=== PATIENT | female | born 1975 | race Caucasian/White ===

== ENCOUNTER 2022-12-31 17:46 | Outpatient (CLI) | payer MEDICARE | END 2022-12-31 23:59 | disposition critical access hospital (66) | LOC: EMS 17:46 | DX: R45.89 Other symptoms and signs involving emotional state (principal) | CPT/HCPCS: A0425; A0429 ==

== ENCOUNTER 2022-12-31 18:08 | Inpatient (IN) | payer MEDICAID, MEDICARE ==
[2022-12-31 18:41] LABS: BASOPHILS # (AUTO) 0.1 10^3/uL (0.0-0.1); BASOPHILS % (AUTO) 1.6 %; EOSINOPHILS # (AUTO) 0.1 10^3/uL (0.0-0.7); EOSINOPHILS % (AUTO) 0.9 %; HCT - HEMATOCRIT 49.7 % (37.0-47.0); HGB - HEMOGLOBIN 16.6 g/dL (12.0-16.0); LYMPHOCYTES # (AUTO) 3.2 10^3/uL (1.5-3.5); LYMPHOCYTES % (AUTO) 42.6 %; MEAN CORPUSCULAR HEMOGLOBIN 31.9 pg (27.0-31.0); MEAN CORPUSCULAR HGB CONC 33.4 g/dL (32.0-36.0); MEAN CORPUSCULAR VOLUME 95.6 fL (81.0-99.0); MEAN PLATELET VOLUME 8.9 fL (7.9-10.8); MONOCYTES # (AUTO) 0.6 10^3/uL (0.0-1.0); MONOCYTES % (AUTO) 8.2 %; NEUTROPHILS # (AUTO) 3.5 10^3/uL (1.5-6.6); NEUTROPHILS % (AUTO) 46.2 %; PLT - PLATELET COUNT 137 10^3/uL (130-450); RED CELL DISTRIBUTION WIDTH 14.7 % (12.0-15.0); WHITE BLOOD COUNT 7.5 x10^3/uL (4.8-10.8)
[2022-12-31 18:51] LABS: MUDS CUTOFF CONCENTRATIONS CUTOFF CONC BELOW:
[2022-12-31 18:56] LABS: GLUCOSE, URINE (UA) 100 mg/dL (NEGATIVE); KETONES,URINE (UA) 15 mg/dL (NEGATIVE); LEUKOCYTE ESTERASE, URINE NEGATIVE (NEGATIVE); NITRITE,URINE NEGATIVE (NEGATIVE); OCCULT BLOOD,URINE MODERATE (NEGATIVE); PH,URINE 6.5 PH (5.0-7.5); PROTEIN,URINE >=300 mg/dL (NEGATIVE); UROBILINOGEN,URINE 2 E.U./dL (NORMAL)
[2022-12-31 19:00] LABS: BILIRUBIN,URINE NEGATIVE (NEGATIVE); CLARITY,URINE HAZY (CLEAR); ICTOTEST,URINE NEGATIVE
[2022-12-31 19:05] LABS: ALBUMIN 4.4 g/dL (3.2-5.5); CK- CREATINE KINASE 150 IU/L (30-223); ETOH - ETHANOL 316.3 mg/dL; LIPASE 44 U/L (11-82); MAGNESIUM 1.6 mg/dL (1.7-2.3)
[2022-12-31 19:07] LABS: BACTERIA,URINE Few /HPF (None Seen); MUCUS,URINE Few Strands; SQUAMOUS EPITHELIAL CELL,UR MANY Squamous (<= Few)
[2022-12-31 19:09] LABS: AMPHETAMINE SCREEN,URINE NEGATIVE (NEGATIVE); BARBITURATE SCREEN,UR NEGATIVE (NEGATIVE); BENZODIAZEPINES SCREEN, URINE NEGATIVE (NEGATIVE); COCAINE SCREEN URINE NEGATIVE (NEGATIVE); METHADONE SCREEN, URINE NEGATIVE (NEGATIVE); METHAMPHETAMINES SCREEN, URINE NEGATIVE (NEGATIVE); OPIATE SCREEN, URINE NEGATIVE (NEGATIVE); OXYCODONE SCREEN, URINE NEGATIVE (NEGATIVE); PROPOXYPHENE SCREEN, URINE NEGATIVE (NEGATIVE); THC CANNABINOID SCREEN, URINE POSITIVE (NEGATIVE); TRICYCLIC ANTIDEPRESSANT,URINE NEGATIVE (NEGATIVE)
[2022-12-31 19:13] LABS: ACETAMINOPHEN < 0 ug/mL (10-30); ALBUMIN/GLOBULIN RATIO 1.2 (1.0-2.2); ALKALINE PHOSPHATASE 119 IU/L (42-121); ALT ALANINE AMINOTRANSFERASE 43 IU/L (10-60); AST ASPARTATE AMINOTRANSFERASE 97 IU/L (10-42); BILIRUBIN,TOTAL 1.4 mg/dL (0.2-1.0); BUN - BLOOD UREA NITROGEN 10 mg/dL (6-20); CARBON DIOXIDE - CO2 19 mmol/L (21-32); CHLORIDE 101 mmol/L (101-111); CREATININE 0.7 mg/dL (0.6-1.3); GFR - MDRD 89 (>89); GLUCOSE 175 mg/dL (74-104); POTASSIUM 3.4 mmol/L (3.5-4.5); SALICYLATE < 1.5 mg/dL; SODIUM 140 mmol/L (135-145); THYROID STIMULATING HORMONE 1.81 uIU/mL (0.34-5.60)
[2022-12-31] MEDS ORDERED: ONDANSETRON ODT 4 MG TABLET TL STA ×2 (19:33→21:52)
[2022-12-31] MEDS ORDERED: POTASSIUM CHLORIDE 20 MEQ/15 ML UDC PO STA (20:28)
[2022-12-31] MEDS ORDERED: diphenhydrAMINE 25 MG CAPSULE PO STA (20:44)
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
[2023-01-01] MEDS ORDERED: METOCLOPRAMIDE 10 MG TABLET PO STA (00:14)
[2023-01-01] MEDS ORDERED: LORazepam 0.5 MG TABLET PO STA (00:14)
[2023-01-01] MEDS ORDERED: IPRATROPIUM/ALBUTEROL 3 ML NEB INH STA (04:19)
[2023-01-01] MEDS ORDERED: LORazepam 2 MG/ML VIAL IVP STA (04:20)
[2023-01-01] MEDS ORDERED: SODIUM CHLORIDE 0.9% 1,000 ML IV STA (04:20)
[2023-01-01] MEDS ORDERED: PANTOPRAZOLE 40 MG VIAL IVP STA (05:11)
[2023-01-01] MEDS ORDERED: SODIUM CHLORIDE FLUSH 0.9% 10 ML SYRINGE IVP PRN (05:19)
[2023-01-01] MEDS ORDERED: NICOTINE 21 MG PATCH TOP STA (05:22)
--- NOTE | 2023-01-01 05:48 | HISTORY & PHYSICAL EXAMINATION ---
History and Physical - History and Physical Chief Complaint - Desire to cease alcohol consumption History of Present Illness (HPI) - Patient is a 47-year-old female with a history of alcoholic cirrhosis, sober for 2 years with a recent relapse 2 weeks ago. - Presented to the emergency room due to alcohol intoxication and a desire to quit alcohol. - Last consumed alcohol yesterday morning, specifically vodka. - According to the patient, she consumes a fifth of vodka daily. - Patient exhibited anxiety and was diaphoretic upon arrival. - Reported multiple vomiting episodes. - Blood alcohol level was initially around 300; though intoxicated, she gradually became more alert, oriented, and displayed increased anxiety. She also presented with tachycardia. - Currently, the patient is somnolent but responsive and answers questions. - She reports no recent fever, chills, diarrhea, or dysuria but has a chronic cough. - Denies headaches but admits to feeling dizzy. - Previous medical procedures include a paracentesis. - She is a smoker of both cigarettes and marijuana. Past Medical History (PMH) - Diabetes mellitus - Alcoholic cirrhosis Past Surgical History - Family History - Diabetes Social History - Daily consumption of a fifth of vodka - Smokes a pack of cigarettes daily and uses marijuana occasionally Review of Systems (ROS) - 14-system review was conducted, all negative except for what's noted in the HPI. Physical Examination - Vitals: Reviewed - Head: Atraumatic, Normocephalic - Eyes: Pupils reactive to light - Neck: No JVD - Cardiovascular System (CVS): Tachycardia - Respiratory System (RS): Tachypnea with mild wheezing - Abdomen: Distended with epigastric tenderness - Extremities: No clubbing, cyanosis, or edema - Skin: Clear, no ulcers or rashes - Musculoskeletal: No calf tenderness - Central Nervous System (PAPER SEALER): Alert and oriented x3; CN 2-12 intact; full movement of all limbs. Decreased sensations in both lower extremities. Laboratory Results - Reviewed Assessment 1. Alcohol withdrawal 2. Liver cirrhosis 3. Hypokalemia 4. Hypomagnesemia 5. Nicotine dependence due to cigarette use 6. Type 2 diabetes mellitus 7. Suspected peripheral diabetic neuropathy Plan - Admit to telemetry - Initiate alcohol withdrawal protocol: IV Ativan, monitor with CIWA score - Administer banana bag - One-time dose of IV Protonix - Replenish magnesium and potassium - Zofran as needed - Apply clonidine patch - Start gabapentin for alcohol withdrawal: 300mg TID on day 1, 300mg BID on subsequent days, then 300mg daily as tapering dose - Administer sliding-scale insulin with Accu-Cheks - Recommend diabetic cardiac diet - Order chest X-ray - Consider abdominal ultrasound if repeat exam shows significant ascites - Initiate nicotine patch therapy Code Status - Full code Additional Information - Examination duration: 70 minutes - Telemedicine evaluation using a bedside audiovisual cart. - Location: Provider in [place], [place]; patient at [facility]. - Verbal consent obtained. - Bedside nurse assisted in the examination.
[2023-01-01] MEDS ORDERED: MAGNESIUM SULFATE 2 GRAM 2 GM/50 ML BAG IV ONE (06:00)
[2023-01-01] MEDS ORDERED: cloNIDine 0.1 MG PATCH TOP SCH (06:00)
[2023-01-01] MEDS: GABAPENTIN 300 MG CAPSULE PO SCH ×3 (06:38→21:55)
--- NOTE | 2023-01-01 08:20 | XRAY Report ---
PROCEDURE: Chest 1 View X-Ray INDICATIONS: hypoxia TECHNIQUE: One view of the chest was acquired. COMPARISON: None. FINDINGS: Surgical changes and devices: None. Lungs and pleura: Patient is rotated No pleural effusions or pneumothorax. Lungs are clear. Mediastinum: Mediastinal contours appear normal. Heart size is normal. Bones and chest wall: No suspicious bony lesions. Overlying soft tissues appear unremarkable. IMPRESSION: Patient is rotated. No gross acute cardiopulmonary process. Findings are concordant with preliminary interpretation provided by [facility]. Reviewed by: Ramin Contreras MD on 01/01/2023 8:19 AM PDT Approved by: Ramin Contreras MD on 01/01/2023 8:19 AM PDT Station ID: [id number]
[2023-01-01 08:59] LABS: ESTIMATED AVERAGE GLUCOSE 192 mg/dL (70-100); HEMOGLOBIN A1c% 8.3 % (4.27-6.07)
[2023-01-01] MEDS ORDERED: MULTIVITAMIN 10 ML, THIAMINE INJ 100 MG, POTASSIUM CHLORIDE INJ 20 MEQ, FOLIC ACID INJ ... IV SCH ×5 (09:00)
--- NOTE | 2023-01-01 09:09 | XRAY Report ---
PROCEDURE: Chest 2 View X-Ray INDICATIONS: baseline TECHNIQUE: 2 views of the chest were acquired. COMPARISON: None. FINDINGS: Surgical changes and devices: None. Lungs and pleura: No pleural effusions or pneumothorax. Lungs are clear. Mediastinum: There is less patient rotation. There is persistent prominence of the right paratrachea l mediastinal contour. No significant central venous congestion. Normal size heart. Bones and chest wall: No suspicious bony lesions. Overlying soft tissues appear unremarkable. IMPRESSION: 1. Clear lungs. 2. Prominent right mediastinal contour may indicate ascending aortic ectasia, other vascular prominen ce, or right perihilar soft tissue mass. Chest CT with contrast recommended. Reviewed by: Karina Simmons MD on 01/01/2023 9:07 AM PDT Approved by: Karina Simmons MD on 01/01/2023 9:07 AM PDT Station ID: [id number]
--- NOTE | 2023-01-01 09:50 | PHARMACY PROGRESS NOTE ---
- Best Possible Medication History Admit Date and Time: 01/01/23 0519 Processed by: Nursing Medication History completed: Yes Med list updated by ER nurse As the person ultimately responsible for medication therapy, providers are able to order a medication from an existing home medication list in [facility] via the "Reconcile Routine" prior to Confirmation of that medication by pharmacy retail support specialist. Such practice is discouraged except when the physician, in their clinical judgment, deems that a medical need exists for a medication without regard to previous use.
--- NOTE | 2023-01-01 10:05 | PROVIDER PROGRESS NOTE ---
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 * Admitted for alcohol withdrawal and started on CIWA protocol. Labs, H&P, and ED notes reviewed. Agree with assessment and plan. * This morning patient has been sleeping most of the morning, with normal vital signs and no acute issues identified. * Discussed with nursing, no concerns currently. * We will continue to monitor and further substance abuse counseling/resources to be discussed when patient is more alert.
[2023-01-01] MEDS: INSULIN LISPRO 300 UNIT/3 ML PEN SUBQ SCH ×4 (10:16→20:38)
[2023-01-01] MEDS: PRENATAL VITAMIN TABLET PO SCH (10:16)
[2023-01-01] MEDS: THIAMINE 100 MG TABLET PO SCH (10:16)
[2023-01-01] MEDS: NYSTATIN POWDER 15 GM TOP SCH ×2 (10:17→20:38)
[2023-01-01] MEDS: SODIUM CHLORIDE FLUSH 0.9% 10 ML SYRINGE IVP SCH ×3 (10:17→23:41)
[2023-01-01] MEDS: polyethylene glycoL 3350 17 GM PACKET PO SCH (10:17)
[2023-01-01] MEDS: LORazepam 2 MG/ML VIAL IVP PRN ×6 (10:18→23:41)
[2023-01-01] MEDS: ONDANSETRON 4 MG/2 ML VIAL IVP PRN ×2 (10:18→15:29)
[2023-01-02] MEDS: ONDANSETRON 4 MG/2 ML VIAL IVP PRN ×4 (04:52→15:30)
[2023-01-02] MEDS: LORazepam 2 MG/ML VIAL IVP PRN ×7 (04:52→16:26)
[2023-01-02 05:43] LABS: ALBUMIN 3.9 g/dL (3.2-5.5); ALBUMIN/GLOBULIN RATIO 1.3 (1.0-2.2); BILIRUBIN,TOTAL 2.8 mg/dL (0.2-1.0); CALCIUM 8.9 mg/dL (8.5-10.3); CREATININE 0.6 mg/dL (0.6-1.3); POTASSIUM 3.7 mmol/L (3.5-4.5)
[2023-01-02] MEDS: GABAPENTIN 300 MG CAPSULE PO SCH (06:30)
[2023-01-02] MEDS ORDERED: PANTOPRAZOLE 40 MG TABLET PO SCH (07:00)
[2023-01-02] MEDS ORDERED: BISACODYL 10 MG SUPP PR ONE (07:24)
[2023-01-02] MEDS: INSULIN LISPRO 300 UNIT/3 ML PEN SUBQ SCH ×3 (08:11→17:09)
[2023-01-02] MEDS: PRENATAL VITAMIN TABLET PO SCH (08:12)
[2023-01-02] MEDS: THIAMINE 100 MG TABLET PO SCH (08:12)
[2023-01-02] MEDS: polyethylene glycoL 3350 17 GM PACKET PO SCH (08:13)
[2023-01-02] MEDS: SODIUM CHLORIDE FLUSH 0.9% 10 ML SYRINGE IVP SCH ×2 (08:13→17:10)
[2023-01-02] MEDS: NYSTATIN POWDER 15 GM TOP SCH (08:13)
[2023-01-02] MEDS ORDERED: SENNA 8.6 MG TABLET PO SCH (09:00)
[2023-01-02] MEDS ORDERED: DOCUSATE SODIUM 250 MG CAPSULE PO SCH (09:00)
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
[2023-01-02] MEDS ORDERED: chlordiazePOXIDE 5 MG CAPSULE PO SCH (14:00)
[2023-01-02 16:16] VITALS: BP 118/70; O2SAT 93
[2023-01-02] MEDS ORDERED: GABAPENTIN 300 MG CAPSULE PO SCH (18:00)
--- NOTE | 2023-01-02 18:14 | Discharge Plan ---
Discharge Plan Problem Reviewed?: Yes Disposition: Home, Self Care Condition: Fair Prescriptions: No122/Iron/Folic Acid [ Multi Tablet] 1 each PO DAILY #30 tablet Thiamine [Vitamin B-1] 100 mg PO DAILY #30 tab Diet: Regular Activity Restrictions: Activity as Tolerated Shower Restrictions: No Driving Restrictions: Yes (no driving) Health Concerns: You presented intoxicated to the emergency room. You are intoxicated with alcohol. You wanted to stop cold turkey. You started going through withdrawal and came to the emergency room. Overnight you have been given medicines to help you with your withdrawal. Today you just want to go home. Plan of Treatment: Please take a vitamin and thiamine. The supplements the vitamin loss that you have with alcohol abuse. Please see a primary care provider in follow-up. Please see if you can put yourself into a rehab program again While you were here your chest x-ray seemed mildly abnormal. There seems to be a fullness the middle of your chest going slightly to the right. It could mean nothing. Or it could mean that you have an aneurysm. Please establish yourself with a primary care provider and get follow-up for an abnormal chest x-ray. Care Goals: You would like to be clean and sober again. Assessment: Patient is still agitated, but no longer hallucinating. No tremors, no diaphoresis. Just finished eating dinner and had no nausea or vomiting No Smoking: If you smoke, Please STOP! Call for help.
--- NOTE | 2023-01-02 18:15 | DISCHARGE SUMMARY ---
"Discharge Summary Admit Date: 01/01/23 Discharge Date: 01/02/23 Discharging Provider: Rosa M Mcghee MD Condition at Discharge: Fair Discharge Disposition: 01 Home, Self Care - DIAGNOSES Discharge Diagnoses with Status of Each Condition: 1. Alcohol dependence with withdrawal 2. Type 2 diabetes mellitus, controlled without long-term use of insulin 3. Peripheral neuropathy 4. Hypokalemia 5. Hypomagnesemia - HPI History of Present Illness: - Patient is a 47-year-old female with a history of alcoholic cirrhosis, sober for 2 years with a recent relapse 2 weeks ago. - Presented to the emergency room due to alcohol intoxication and a desire to quit alcohol. - Last consumed alcohol yesterday morning, specifically vodka. - According to the patient, she consumes a fifth of vodka daily. - Patient exhibited anxiety and was diaphoretic upon arrival. - Reported multiple vomiting episodes. - Blood alcohol level was initially around 300; though intoxicated, she gr adually became more alert, oriented, and displayed increased anxiety. She also presented with tachycardia. - Currently, the patient is somnolent but responsive and answers questions. - She reports no recent fever, chills, diarrhea, or dysuria but has a chronic cough. - Denies headaches but admits to feeling dizzy. - Previous medical procedures include a paracentesis. - She is a smoker of both cigarettes and marijuana. Past Medical History (PMH) - Diabetes mellitus - Alcoholic cirrhosis Past Surgical History - - CONSULTS | PROCEDURES Procedures: 2 chest x-rays were done. She has a prominent right mediastinal contour indicating possible a sending aortic ectasia. Or right perihilar soft tissue. Chest CT was recommended and not done. Patient wanted to go home. - HOSPITAL COURSE Hospital Course: Patient was started on CIWA protocol. She was receiving quite a bit of Ativan and received 18 mg before the afternoon of January 02. And then in the afternoon received another 6 mg. She was also started on Librium 5 mg. She did have mild hallucinations in the morning. But by the afternoon she was eating. Ambulating. No longer tremulous. No longer diaphoretic. And she wanted to go home. She did not want to stay any longer. As such she was discharged in stable condition. Instructed to take vitamins in the form of thiamine and . Instructed to get a follow-up of her chest x-ray. She is slightly tachycardic at 114, but again the patient wants to leave. Blood pressure is 118/70. Respirations 18. 93% on room air. When she was examined today she had clear lungs. Tachycardia. But no tremors or ataxia. This document was made in part using voice recognition software. While efforts are made to proofread this document, sound alike and grammatical errors may occu r. - ALLERGIES Allergies/Adverse Reactions: Allergies Allergy/AdvReac Type Severity Reaction Status Date / Time abx Allergy Hives Uncoded 01/01/23 05:35 - MEDICATIONS Home Medications: Ambulatory Orders Medication Instructions Recorded Confirmed Omeprazole Magnesium 20 mg PO DAILY 01/01/23 01/01/23 No122/Iron/Folic Acid 1 each PO DAILY #30 tablet 01/02/23 [ Multi Tablet] Thiamine [Vitamin B-1] 100 mg PO DAILY #30 tab 01/02/23 - LABS Result Diagrams: 12/31/22 18:29 01/02/23 04:46"
[2023-01-03] MEDS ORDERED: BISACODYL 10 MG SUPP PR ONE (07:24)
== END 2023-01-02 18:25 | disposition home or self-care (01) | DRG 897 ==
LOC: ED 18:08 → MS2 01-01 05:19
PROVIDERS: ADMIT Internal Medicine; ATTEND Specialist
DX: F10.129 Alcohol abuse with intoxication, unspecified (principal); F32.A Depression, unspecified; F10.231 Alcohol dependence with withdrawal delirium; R00.0 Tachycardia, unspecified; R11.0 Nausea; R09.02 Hypoxemia; Z20.822 Contact with and (suspected) exposure to COVID-19; Z63.4 Disappearance and death of family member; E11.42 Type 2 diabetes mellitus with diabetic polyneuropathy; E87.6 Hypokalemia; E83.42 Hypomagnesemia; K70.30 Alcoholic cirrhosis of liver without ascites; F41.9 Anxiety disorder, unspecified; Y90.8 Blood alcohol level of 240 mg/100 ml or more; F17.210 Nicotine dependence, cigarettes, uncomplicated
CPT/HCPCS: 36415; 71045; 71046; 80053; 80306; 80307; 81001; 82550; 83036; 83690; 83735; 84443; 85025; 87635; 93005; 94640; 96374; 99284; 99285; A9270; G0480; J2060; Q0162; 80320; 80329; 81003; 87086

== ENCOUNTER 2023-02-16 12:33 | Emergency (ER) | payer MEDICARE, MEDICAID ==
[2023-02-16 13:21] LABS: MUDS CUTOFF CONCENTRATIONS CUTOFF CONC BELOW:
[2023-02-16 13:24] LABS: BILIRUBIN,URINE NEGATIVE (NEGATIVE); GLUCOSE, URINE (UA) NEGATIVE (NEGATIVE); KETONES,URINE (UA) NEGATIVE (NEGATIVE); LEUKOCYTE ESTERASE, URINE NEGATIVE (NEGATIVE); NITRITE,URINE NEGATIVE (NEGATIVE); OCCULT BLOOD,URINE SMALL (NEGATIVE); PH,URINE 6.5 PH (5.0-7.5); PROTEIN,URINE 100 mg/dL (NEGATIVE); UROBILINOGEN,URINE 4 E.U./dL (NORMAL)
[2023-02-16 13:25] LABS: BASOPHILS # (AUTO) 0.1 10^3/uL (0.0-0.1); EOSINOPHILS # (AUTO) 0.2 10^3/uL (0.0-0.7); HCT - HEMATOCRIT 44.4 % (37.0-47.0); HGB - HEMOGLOBIN 14.6 g/dL (12.0-16.0); LYMPHOCYTES # (AUTO) 2.9 10^3/uL (1.5-3.5); LYMPHOCYTES % (AUTO) 39.7 %; MEAN CORPUSCULAR HEMOGLOBIN 31.9 pg (27.0-31.0); MEAN CORPUSCULAR HGB CONC 32.9 g/dL (32.0-36.0); MEAN CORPUSCULAR VOLUME 97.2 fL (81.0-99.0); MEAN PLATELET VOLUME 9.8 fL (7.9-10.8); MONOCYTES # (AUTO) 0.6 10^3/uL (0.0-1.0); MONOCYTES % (AUTO) 8.6 %; NEUTROPHILS # (AUTO) 3.5 10^3/uL (1.5-6.6); NEUTROPHILS % (AUTO) 47.3 %; PLT - PLATELET COUNT 131 10^3/uL (130-450); RED BLOOD COUNT 4.57 10^6/uL (4.20-5.40); RED CELL DISTRIBUTION WIDTH 13.3 % (12.0-15.0); WHITE BLOOD COUNT 7.3 x10^3/uL (4.8-10.8)
[2023-02-16 13:27] LABS: CLARITY,URINE CLEAR (CLEAR)
--- NOTE | 2023-02-16 13:31 | ED Physician Documentation ---
PD HPI MHE - Stated complaint Stated Complaint: MED CLEARANCE FOR [facility] - Chief complaint Chief Complaint: General - History obtained from History obtained from: Patient - History of Present Illness Primary symptom: Medical clearance Timing - onset: How many months ago (The patient states she has a history of alcoholism in the past and has been sober for 2 years until this past July when she started drinking again regularly. She would like to stop now and is here for medical clearance for detox.) Contributing factors: Substance abuse - ETOH (had some alochol [employer] to keep from having withdrawal while initiating and getting to detox treatment.). No: Substance abuse - drugs Similar symptoms before: Diagnosis (History of liver disease in the past related to alcohol use. This improved with being off alcohol. She has been through detox in the past and had a sober period of 2 years up till this july.) Recently seen: Not recently seen Review of Systems Constitutional: denies: Fever, Chills Nose: denies: Rhinorrhea / runny nose, Congestion Throat: denies: Sore throat Respiratory: denies: Cough GI: denies: Abdominal Pain, Vomiting, Diarrhea, Bloody / black stool Neurologic: denies: Generalized weakness, Focal weakness PD PAST MEDICAL HISTORY - Past Medical History Cardiovascular: None Respiratory: None Neuro: None Endocrine/Autoimmune: Type 2 diabetes GI: Cirrhosis (she states history of liver cirrhosis due to alcohol in the past. No current treatments. ) : None Psych: Depression, Anxiety Musculoskeletal: None Derm: None - Present Medications Home Medications: Ambulatory Orders Medication Instructions Recorded Confirmed Omeprazole Magnesium 20 mg PO DAILY 01/01/23 02/16/23 No122/Iron/Folic Acid 1 each PO DAILY #30 tablet 01/02/23 01/29/23 [ Multi Tablet] Thiamine [Vitamin B-1] 100 mg PO DAILY #30 tab 01/02/23 01/29/23 Acamprosate Calcium 666 mg PO TID 01/27/23 01/29/23 Empagliflozin [Jardiance] 25 mg PO DAILY 01/27/23 01/29/23 Insulin Glargine [Lantus Solostar] 60 units SUBQ DAILY 01/27/23 01/29/23 Levothyroxine [Synthroid] 125 mcg PO DAILY 01/27/23 01/29/23 Naltrexone HCl 50 mg PO DAILY 01/27/23 01/29/23 Omeprazole Magnesium 20 mg PO DAILY #20 tab 02/16/23 Potassium Chloride 20 meq PO DAILY #10 tab 02/16/23 - Allergies Allergies/Adverse Reactions: Allergies Allergy/AdvReac Type Severity Reaction Status Date / Time vancomycin Allergy Hives Verified 01/29/23 10:05 abx Allergy Hives Uncoded 01/29/23 10:05 - Social History Does the pt smoke?: No Smoking Status: Light tobacco smoker PD ED PE NORMAL - Vitals Vital signs reviewed: Yes - General General: Alert and oriented X 3, Well developed/nourished, Other (truncal elevated BMI) - Neck Neck: Supple, no meningeal sign, No adenopathy - Cardiac Cardiac: RRR, No murmur - Respiratory Respiratory: Clear bilaterally - Abdomen Abdomen: Soft, Non tender - Derm Derm: Normal color, Warm and dry - Neuro Neuro: Alert and oriented X 3, No motor deficit, No sensory deficit, Normal speech - Psych Psych: Normal mood (tearful and wanting help with alcohol treatment. ) Results - Vitals Vitals: Vital Signs - 24 hr 02/16/23 02/16/23 02/16/23 12:36 13:52 15:00 Temperature 36.2 C L Heart Rate 96 88 104 H Respiratory 18 18 18 Rate Blood Pressure 145/90 H 143/88 H 124/99 H O2 Saturation 97 96 95 02/16/23 17:32 Temperature Heart Rate 95 Respiratory 18 Rate Blood Pressure 155/92 H O2 Saturation 97 Oxygen O2 Source Room air - Labs Labs: Laboratory Tests 02/16/23 02/16/23 02/16/23 13:08 13:08 13:14 WBC 7.3 RBC 4.57 Hgb 14.6 Hct 44.4 MCV 97.2 MCH 31.9 H MCHC 32.9 RDW 13.3 Plt Count 131 MPV 9.8 Neut # (Auto) 3.5 Lymph # (Auto) 2.9 [place] # (Auto) 0.6 Eos # (Auto) 0.2 Baso # (Auto) 0.1 Absolute Nucleated RBC 0.00 Nucleated RBC % 0.0 Sodium 138 Potassium 3.1 L Chloride 100 L Carbon Dioxide 21 Anion Gap 17.0 H BUN 7 Creatinine 0.6 Estimated GFR (MDRD) 106 Glucose 157 H Calcium 8.9 Magnesium 1.4 L Total Bilirubin 1.6 H AST 98 H ALT 48 Alkaline Phosphatase 110 Total Creatine Kinase 182 Total Protein 7.7 Albumin 4.4 Globulin 3.3 Albumin/Globulin Ratio 1.3 Lipase 55 TSH 3.71 Urine Color DARK YELLOW Urine Clarity CLEAR Urine pH 6.5 Ur Specific [place] 1.010 Urine Protein 100 H Urine Glucose (UA) NEGATIVE Urine Ketones NEGATIVE Urine Occult Blood SMALL H Urine Nitrite NEGATIVE Urine Bilirubin NEGATIVE Urine Urobilinogen 4 H Ur Leukocyte Esterase NEGATIVE Urine RBC 0-5 Urine WBC 0-3 Ur Squamous Epith Cells MOD Squamous H Amorphous Sediment Few Urine Bacteria Few Ur Microscopic Review INDICATED Urine Culture Comments NOT INDICATED Salicylates < 1.5 Urine Opiates Screen NEGATIVE Ur Oxycodone Screen NEGATIVE Urine Methadone Screen NEGATIVE Ur Propoxyphene Screen NEGATIVE Acetaminophen < 0 L Ur Barbiturates Screen NEGATIVE Ur Tricyclics Screen NEGATIVE Ur Phencyclidine Scrn NEGATIVE Ur Amphetamine Screen NEGATIVE U Methamphetamines Scrn NEGATIVE U Benzodiazepines Scrn POSITIVE H Urine Cocaine Screen NEGATIVE U Cannabinoids Screen POSITIVE H Ethyl Alcohol 307.4 PD Medical Decision Making - ED course Complexity details: reviewed results (Your potassium is slightly low. Otherwise electrolytes are good. Her bilirubin is 1.6 with otherwise normal LFTs at this point. She claims history of cirrhosis. Current labs are okay.), considered differential (History of alcoholism. She had drank this morning in order to keep from having withdrawal symptoms per the patient. No withdrawal symptoms here in the ER. We will watch for signs of that while getting medical clearance. We will get her to the detox treatment in [place] pending clearance. ), d/w patient Social Determinants of Health: She does have a history of alcohol intake fairly regular large amount so we will watch for withdrawal symptoms while here. Otherwise she does have a ride to the detox center once medically clear. Nursing states they called up to there and they do have a female bed available. Once we have labs resulted we will fax it to them and they can talk with the patient again if needed, otherwise will discharge the patient to their. She is here with family member who can drive her up. She did develop some withdrawal symptoms while here, with anxious, nausea, faster heart rate. Mild tremor. Given PO meds of Ativan and Phenobarb with improvement over next half hour. CIWA went from 25 to 8 with the meds. She is medically clear for [place]. Potassium improved with PO supplement. ED course: The patient had odalys interviewed with [facility] prior to ED, and had been directed here for med clearance. Nursing faxed labs to them and they reviewed and ac cepted the patient, to come over there. Her family member will be driving her. The patient had been on meds in past for diabetes. She states only current med is Omeprazole. Departure - Departure Disposition: 01 Home, Self Care Clinical Impression: Alcohol use disorder, Alcohol dependence, Hypokalemia Condition: Stable Record reviewed to determine appropriate education?: Yes Prescriptions: Omeprazole Magnesium 20 mg PO DAILY #20 tab Potassium Chloride 20 meq PO DAILY #10 tab Comments: The detox center in [place] says you are able to head their direction and they are able to accept you. They will treat you for the withdrawal symptoms and provide follow-up and support. They want you to continue with usual medication which she stated is just omeprazole. I would probably recommend taking it daily for the next month or so. Your potassium was low here as well and I would suggest a supplement daily for the next 7 to 10 days. Otherwise medications per the detox center. Stay well-hydrated. Go directly to there, except picking up medications if needed (also available as [id number]) as they will be awaiting you. Forms: PCP List Discharge Date/Time: 02/16/23 17:32
[2023-02-16 13:37] LABS: BACTERIA,URINE Few /HPF (None Seen); RBC,URINE 0-5 /HPF (0-5); SQUAMOUS EPITHELIAL CELL,UR MOD Squamous (<= Few); WBC,URINE 0-3 /HPF (0-5)
[2023-02-16 13:38] LABS: AMORPHOUS SEDIMENT,UR Few /LPF; AMPHETAMINE SCREEN,URINE NEGATIVE (NEGATIVE); BARBITURATE SCREEN,UR NEGATIVE (NEGATIVE); BENZODIAZEPINES SCREEN, URINE POSITIVE (NEGATIVE); COCAINE SCREEN URINE NEGATIVE (NEGATIVE); METHADONE SCREEN, URINE NEGATIVE (NEGATIVE); METHAMPHETAMINES SCREEN, URINE NEGATIVE (NEGATIVE); OPIATE SCREEN, URINE NEGATIVE (NEGATIVE); OXYCODONE SCREEN, URINE NEGATIVE (NEGATIVE); PROPOXYPHENE SCREEN, URINE NEGATIVE (NEGATIVE); THC CANNABINOID SCREEN, URINE POSITIVE (NEGATIVE); TRICYCLIC ANTIDEPRESSANT,URINE NEGATIVE (NEGATIVE)
[2023-02-16 13:38] LABS: ALBUMIN 4.4 g/dL (3.2-5.5); CK- CREATINE KINASE 182 IU/L (30-223); ETOH - ETHANOL 307.4 mg/dL; LIPASE 55 U/L (11-82); MAGNESIUM 1.4 mg/dL (1.7-2.3)
[2023-02-16 13:39] LABS: ALBUMIN/GLOBULIN RATIO 1.3 (1.0-2.2); ALKALINE PHOSPHATASE 110 IU/L (42-121); ALT ALANINE AMINOTRANSFERASE 48 IU/L (10-60); AST ASPARTATE AMINOTRANSFERASE 98 IU/L (10-42); BILIRUBIN,TOTAL 1.6 mg/dL (0.2-1.0); BUN - BLOOD UREA NITROGEN 7 mg/dL (6-20); CALCIUM 8.9 mg/dL (8.5-10.3); CARBON DIOXIDE - CO2 21 mmol/L (21-32); CHLORIDE 100 mmol/L (101-111); CREATININE 0.6 mg/dL (0.6-1.3); GFR - MDRD 106 (>89); GLUCOSE 157 mg/dL (74-104); POTASSIUM 3.1 mmol/L (3.5-4.5); SODIUM 138 mmol/L (135-145); TOTAL PROTEIN 7.7 g/dL (6.4-8.9)
[2023-02-16 13:42] LABS: ACETAMINOPHEN < 0 ug/mL (10-30); SALICYLATE < 1.5 mg/dL
[2023-02-16] MEDS ORDERED: POTASSIUM BICARB 25 MEQ TABLET PO STA (13:44)
[2023-02-16 13:53] LABS: THYROID STIMULATING HORMONE 3.71 uIU/mL (0.34-5.60)
[2023-02-16] MEDS ORDERED: PHENobarbitaL 32.4 MG TABLET PO STA (15:32)
[2023-02-16] MEDS ORDERED: LORazepam 1 MG TABLET PO STA (15:32)
[2023-02-16 17:39] VITALS: BP 155/92; O2SAT 97
== END 2023-02-16 17:32 | disposition home or self-care (01) ==
LOC: ED 12:33
DX: Z02.79 Encounter for issue of other medical certificate (principal); F10.239 Alcohol dependence with withdrawal, unspecified; Y90.8 Blood alcohol level of 240 mg/100 ml or more; E87.6 Hypokalemia; E11.9 Type 2 diabetes mellitus without complications; Z79.4 Long term (current) use of insulin; Z79.84 Long term (current) use of oral hypoglycemic drugs; F17.200 Nicotine dependence, unspecified, uncomplicated
CPT/HCPCS: 36415; 80053; 80306; 80307; 81001; 82550; 83690; 83735; 84443; 85025; 99283; 99284; A9270; G0480; J8499; 80320; 80329; 81003; 87086

== ENCOUNTER 2023-03-21 09:32 | Outpatient (CLI) | payer MEDICARE, MEDICAID | END 2023-03-21 09:33 | disposition critical access hospital (66) | LOC: EMS 09:32 | DX: R45.89 Other symptoms and signs involving emotional state (principal) | CPT/HCPCS: A0425; A0429 ==

== ENCOUNTER 2023-03-21 09:53 | Emergency (ER) | payer MEDICARE, MEDICAID ==
[2023-03-21] MEDS ORDERED: SODIUM CHLORIDE 0.9% 1,000 ML IV STA (10:21)
[2023-03-21 10:48] LABS: BASOPHILS # (AUTO) 0.1 10^3/uL (0.0-0.1); EOSINOPHILS # (AUTO) 0.1 10^3/uL (0.0-0.7); EOSINOPHILS % (AUTO) 1.9 %; HCT - HEMATOCRIT 43.3 % (37.0-47.0); HGB - HEMOGLOBIN 14.3 g/dL (12.0-16.0); LYMPHOCYTES # (AUTO) 2.6 10^3/uL (1.5-3.5); LYMPHOCYTES % (AUTO) 44.7 %; MEAN CORPUSCULAR HEMOGLOBIN 31.3 pg (27.0-31.0); MEAN CORPUSCULAR VOLUME 94.7 fL (81.0-99.0); MEAN PLATELET VOLUME 9.2 fL (7.9-10.8); MONOCYTES # (AUTO) 0.5 10^3/uL (0.0-1.0); MONOCYTES % (AUTO) 7.7 %; NEUTROPHILS # (AUTO) 2.6 10^3/uL (1.5-6.6); NEUTROPHILS % (AUTO) 44.4 %; PLT - PLATELET COUNT 144 10^3/uL (130-450); RED BLOOD COUNT 4.57 10^6/uL (4.20-5.40); RED CELL DISTRIBUTION WIDTH 12.9 % (12.0-15.0); WHITE BLOOD COUNT 5.9 x10^3/uL (4.8-10.8)
[2023-03-21 11:01] LABS: ALBUMIN 4.1 g/dL (3.2-5.5); ALBUMIN/GLOBULIN RATIO 1.4 (1.0-2.2); BILIRUBIN,TOTAL 1.2 mg/dL (0.2-1.0); CALCIUM 8.1 mg/dL (8.5-10.3); CREATININE 0.5 mg/dL (0.6-1.3); ETOH - ETHANOL 397.1 mg/dL; POTASSIUM 3.5 mmol/L (3.5-4.5); TOTAL PROTEIN 7.1 g/dL (6.4-8.9)
[2023-03-21 11:15] LABS: THYROID STIMULATING HORMONE 1.18 uIU/mL (0.34-5.60)
--- NOTE | 2023-03-21 18:31 | ED Physician Documentation ---
PD HPI MHE - Stated complaint Stated Complaint: HBD/REQ DETOX - Chief complaint Chief Complaint: MHE - History obtained from History obtained from: Patient - Additional information Additional information: The patient comes to the emergency department chief complaint of "I want to go to detox.". The patient has a longstanding history of alcoholism and states that she has been feeling sad because this is the time of year when she lost her son and she always feels a lot of grief around now. The patient feels that she has been drinking too much and wants to quit. She is not exactly sure how much she had to drink today but she states that it included hard liquor. Her last drink was early this morning. She denies any other substance use. She has not made any attempts at suicide and is not feeling suicidal. She has been mildly nauseated but has not had any vomiting. No injuries. PD PAST MEDICAL HISTORY - Past Medical History Cardiovascular: None Respiratory: None Neuro: None Endocrine/Autoimmune: Type 2 diabetes GI: Cirrhosis : None Psych: Depression, Anxiety Musculoskeletal: None Derm: None - Past Surgical History Past Surgical History: No - Present Medications Home Medications: Ambulatory Orders Medication Instructions Recorded Confirmed No Known Home Medications 03/21/23 03/21/23 - Allergies Allergies/Adverse Reactions: Allergies Allergy/AdvReac Type Severity Reaction Status Date / Time vancomycin Allergy Hives Verified 03/21/23 10:06 abx Allergy Hives Uncoded 03/21/23 10:06 - Social History Does the pt smoke?: No Smoking Status: Never smoker Does the pt drink ETOH?: Yes Does the pt have substance abuse?: No - Immunizations Immunizations are current?: Yes - POLST Patient has POLST: No PD ED PE NORMAL - Vitals Vital signs reviewed: Yes - General General: No acute distress, Well developed/nourished, Other (Awake, smells of alcohol, clinically intoxicated but no apparent distress.) - HEENT HEENT: Atraumatic, PERRL, EOMI, Moist mucous membranes - Neck Neck: Supple, no meningeal sign - Cardiac Cardiac: RRR, No murmur - Respiratory Respiratory: No respiratory distress, Clear bilaterally - Abdomen Abdomen: Soft, Non tender, Non distended, Other (Patient the patient is morbidly obese.) - Derm Derm: Normal color, Warm and dry, No rash - Extremities Extremities: No deformity, No edema - Neuro Neuro: Other (Awake, answers questions appropriately, clinically moderately intoxicated and emotionally labile, but cooperative and grossly neurologically intact otherwise.) - Psych Psych: Other (Emotionally labile, intermittently tearful, very pleasant and cooperative, however.) Results - Vitals Vitals: Vital Signs - 24 hr 03/21/23 03/21/23 03/21/23 10:00 10:12 12:06 Temperature 36.4 C L Heart Rate 91 94 73 Respiratory 20 20 17 Rate Blood Pressure 157/101 H 131/89 H 139/89 H O2 Saturation 96 97 96 03/21/23 03/21/23 03/21/23 14:16 15:21 17:32 Temperature Heart Rate 86 92 81 Respiratory 18 18 19 Rate Blood Pressure 149/109 H 123/84 H 120/84 H O2 Saturation 94 94 95 Oxygen O2 Source Room air - Labs Labs: Laboratory Tests 03/21/23 03/21/23 03/21/23 10:35 10:35 11:21 WBC 5.9 RBC 4.57 Hgb 14.3 Hct 43.3 MCV 94.7 MCH 31.3 H MCHC 33.0 RDW 12.9 Plt Count 144 MPV 9.2 Neut # (Auto) 2.6 Lymph # (Auto) 2.6 [place] # (Auto) 0.5 Eos # (Auto) 0.1 Baso # (Auto) 0.1 Absolute Nucleated RBC 0.00 Nucleated RBC % 0.0 Sodium 139 Potassium 3.5 Chloride 102 Carbon Dioxide 22 Anion Gap 15.0 H BUN 5 L Creatinine 0.5 L Estimated GFR (MDRD) 131 Glucose 217 H Calcium 8.1 L Total Bilirubin 1.2 H AST 55 H ALT 35 Alkaline Phosphatase 93 Total Protein 7.1 Albumin 4.1 Globulin 3.0 Albumin/Globulin Ratio 1.4 Lipase 40 TSH 1.18 Ethyl Alcohol 397.1 SARS-CoV-2 (PCR) NOT DETECTED PD Medical Decision Making - ED course Complexity details: reviewed results, re-evaluated patient, considered differential, d/w patient, d/w family ED course: The patient was evaluated in the emergency department and found to have a blood alcohol level of 397. At this point, the patient is otherwise medically clear but needs to sober up further before she can be evaluated for possible transfer to detox facility. We have already checked with [facility], who does not have any beds. I will obtain a repeat alcohol level and we will see how much progress the patient is made. If the patient decides she would like to go home with her family, then this is a reasonable option as she is not at this point expressing any grave disability or suicidal or homicidal ideation. The patient will be signed out to Dr. Leyva at change of shift, pending further sobriety and clearance for possible transfer to detox facility versus decision to go home. Departure - Departure
[2023-03-21] MEDS ORDERED: DROPERIDOL 5 MG/2 ML VIAL IVP STA (20:44)
--- NOTE | 2023-03-21 20:45 | ED Physician Documentation ---
ED Addendum - Addendum Addendum: 03/21/23 20:45 Patient endorsed to me by Dr. Turner at 7 PM social change. Patient vomiting and therefore Zofran and droperidol was subsequently ordered. 03/22/23 06:48 Patient slept after initial vomiting episode. Otherwise NAEON. SW consult ordered to assist in coordinating possible detox resources. plan to endorse to incoming daytime ED MD at 7am shift change.
[2023-03-22] MEDS ORDERED: ONDANSETRON 4 MG/2 ML VIAL IVP STA (03:09)
[2023-03-22 03:15] LABS: MUDS CUTOFF CONCENTRATIONS CUTOFF CONC BELOW:
[2023-03-22 03:18] LABS: HCG UR QUAL NEGATIVE
[2023-03-22 03:33] LABS: AMPHETAMINE SCREEN,URINE NEGATIVE (NEGATIVE); BARBITURATE SCREEN,UR NEGATIVE (NEGATIVE); BENZODIAZEPINES SCREEN, URINE NEGATIVE (NEGATIVE); COCAINE SCREEN URINE NEGATIVE (NEGATIVE); METHADONE SCREEN, URINE NEGATIVE (NEGATIVE); METHAMPHETAMINES SCREEN, URINE NEGATIVE (NEGATIVE); OPIATE SCREEN, URINE NEGATIVE (NEGATIVE); OXYCODONE SCREEN, URINE NEGATIVE (NEGATIVE); PROPOXYPHENE SCREEN, URINE NEGATIVE (NEGATIVE); THC CANNABINOID SCREEN, URINE POSITIVE (NEGATIVE); TRICYCLIC ANTIDEPRESSANT,URINE NEGATIVE (NEGATIVE)
--- NOTE | 2023-03-22 12:59 | ED Physician Documentation ---
ED Addendum - Addendum Addendum: 03/22/23 12:57 Patient has decided that she no longer wants to go to detox. She is not actively withdrawing currently. She states that she lives about 2 blocks away from [facility] and will contact them for outpatient detox. No longer wants to stay in the emergency department at this time. Not suicidal. Not homicidal. No hallucinations. Ambulating with a steady gait. Patient counseled regarding signs and symptoms for which I believe and urgent re-evaluation would be necessary. Patient with good understanding of and agreement to plan and is comfortable going home at this time This document was made in part using voice recognition software. While efforts are made to proofread this document, sound alike and grammatical errors may occur. Departure - Departure Disposition: 01 Home, Self Care Clinical Impression: Alcohol withdrawal Qualifiers: Complication of substance-induced condition: uncomplicated Qualified Code(s): F10.930 - Alcohol use, unspecified with withdrawal, uncomplicated Condition: Good Instructions: ED Withdrawal Alcohol Follow-Up: your,doctor in 1 week [Other] Comments: Please follow-up with your doctor for any further care. Please return if you worsen. You can contact [facility] directly for alcohol detox. Contact: [facility] [address] [place] [id number] Fax: Forms: PCP List
[2023-03-22 13:09] VITALS: BP 156/90; O2SAT 96
== END 2023-03-22 13:09 | disposition home or self-care (01) ==
LOC: EDUNIT# → ED 09:53
DX: F10.220 Alcohol dependence with intoxication, uncomplicated (principal); R11.10 Vomiting, unspecified; Y90.8 Blood alcohol level of 240 mg/100 ml or more; Z20.822 Contact with and (suspected) exposure to COVID-19
CPT/HCPCS: 36415; 80053; 80306; 81025; 83690; 84443; 85025; 87635; 96374; 96375; 99283; G0480; 80320

== ENCOUNTER 2023-03-31 16:25 | Outpatient (CLI) | payer MEDICARE, MEDICAID | END 2023-03-31 16:26 | disposition EMS.NT | LOC: EMS 16:25 | DX: F10.90 Alcohol use, unspecified, uncomplicated (principal); F32.A Depression, unspecified ==

== ENCOUNTER 2023-05-02 14:19 | Outpatient (CLI) | payer MEDICARE, MEDICAID | END 2023-05-02 23:59 | disposition E | LOC: EMS 14:19 ==